=== PATIENT | male | born 1985 | race Caucasian/White ===

== ENCOUNTER 2024-01-27 19:48 | Emergency (ER) | payer MEDICAID, SELFPAY ==
[2024-01-27 19:49] VITALS: BP 171/87; PULSE 88; RESP 18; TEMP 36.6; O2SAT 99; BMI 40.8
[2024-01-27] MEDS: Cephalexin 250 MG Capsule 500 MG PO (21:01)
[2024-01-27 21:03] VITALS: BP 171/87; PULSE 88; RESP 18; TEMP 36.6; O2SAT 99
== END 2024-01-27 21:04 | disposition home or self-care (01) ==
PROVIDERS: Emergency Provider Emergency Medicine; Visit Provider Emergency Medicine
DX: L03.311 Cellulitis of abdominal wall (principal); E11.9 Type 2 diabetes mellitus without complications; F17.200 Nicotine dependence, unspecified, uncomplicated; L02.211 Cutaneous abscess of abdominal wall; I10 Essential (primary) hypertension; Z79.899 Other long term (current) drug therapy; Z79.84 Long term (current) use of oral hypoglycemic drugs
CPT/HCPCS: 99282

== ENCOUNTER 2024-02-01 14:39 | Emergency (ER) | payer MEDICAID, SELFPAY ==
[2024-02-01 14:40] VITALS: BP 170/104; PULSE 86; RESP 18; TEMP 36.4; O2SAT 99; BMI 41.0
[2024-02-01] MEDS: HYDROcodone Bitartrate/Apap 5/325 Tablet PO (15:06)
== END 2024-02-01 16:01 | disposition home or self-care (01) ==
PROVIDERS: Emergency Provider Emergency Medicine; Referring Provider Emergency Medicine; Visit Provider Emergency Medicine
DX: S40.011A Contusion of right shoulder, initial encounter (principal); E11.9 Type 2 diabetes mellitus without complications; I10 Essential (primary) hypertension; F17.200 Nicotine dependence, unspecified, uncomplicated; W10.9XXA Fall (on) (from) unspecified stairs and steps, initial encounter
CPT/HCPCS: 73030; 99282

== ENCOUNTER 2024-04-01 20:28 | Emergency (ER) | payer SELFPAY ==
[2024-04-01 20:28] VITALS: BP 153/97; PULSE 85; RESP 16; TEMP 36.6; O2SAT 97; BMI 40.8
--- NOTE | 2024-04-01 20:40 | EDS_ITS ---
HPI History of Present Illness Chief Complaint: Headache Detail of Chief Complaint: Headache Informant: patient Narrative Narrative: Patient presents emergency department complaint of headache that started 3 days ago. He initially had nausea and vomiting the first day. Today he had 1 episode of diarrhea. Patient has history of migraines and states that they have been worse over the last several months. Patient has been trying over-the- counter remedies without any relief. Patient denies falls or head injuries. He denies fever. He states he took a COVID test yesterday and it was negative. He states that when he had COVID last time he presented with a severe headache. Patient does describe some photophobia. Currently rates headache a 7-1/2 out of 10. [facility] Medical History (Updated 04/01/24 @ 21:[address] Arnulfo Lemon DO) Marijuana smoker Hypertension Diabetes Home Medications ?Medication ?Instructions ?Recorded ?Last Taken ?Type lisinopril 20 mg tablet 20 mg PO DAILY 01/27/24 Unknown History metformin 1,000 mg tablet 1,000 mg PO BID 01/27/24 Unknown History aripiprazole 20 mg tablet 20 mg PO QPM 04/01/24 Unknown History doxepin 25 mg capsule 25 mg PO QHS 04/01/24 Unknown History pantoprazole 40 mg tablet,delayed 40 mg PO DAILY 04/01/24 Unknown History release propranolol 20 mg tablet 20 mg PO TID PRN PRN anxiety 04/01/24 Unknown History viloxazine 200 mg capsule,extended 600 mg PO DAILY 04/01/24 03/28/24 History release 24 hr (Qelbree) Allergy/AdvReac Type Severity Reaction Status Date / Time doxycycline Allergy Mild Other Verified 04/01/24 20:31 Surgical History H/O shoulder surgery Social History Smoking Status: Current every day smoker tobacco type: cigarettes ROS ROS ED Review of Systems ROS Unobtainable: other Constitutional Constitutional ED: Reports lethargy; Denies chills, fever(s), sweats or weight loss Eyes Eyes: Denies blurry vision, change in vision or diplopia ENT ENT ED: Reports other Details: Photophobia ; Denies rhinorrhea or sore throat Cardiovascular Cardiovascular: Denies chest pain, orthopnea or racing heartbeat Respiratory/Chest Respiratory/Chest: Denies cough, dyspnea, dyspnea on exertion, orthopnea or sputum Gastrointestinal Gastrointestinal: Reports nausea and vomiting; Denies abdominal pain or diarrhea Genitourinary Genitourinary ED: Denies dysuria, hematuria or urinary frequency Musculoskeletal Musculoskeletal: Denies arthralgias, back pain, myalgias or neck pain Integumentary Denies abscess, Abrasions or rash Neurologic Neurologic: Reports headache(s); Denies weakness Psychiatric Psychiatric: Denies anxiety, depression or suicidal thoughts Endocrine Endocrinology: Denies polydipsia, polyphagia or polyuria Hematologic/Lymphatic Hematologic/Lymphatic: Denies easy bleeding, easy bruising or lymphadenopathy Allergic/Immunologic Allergic/Immunologic ED: Denies mouth swelling, tongue swelling or urticaria EXAM Physical Exam Const Vital Signs: 04/01/24 20:28 Temperature 98 F Temperature Source Oral Pulse Rate 85 Respiratory Rate 16 Blood Pressure 153/97 H Blood Pressure Mean 115 Pulse Ox 97 Oxygen Delivery Method Room Air Positive well nourished and well developed General Appearance ED: well developed and NAD HEENT Reports TM's clear and moist mucous membranes normocephalic and atraumatic; Negative for trauma or tenderness Tympanic Membrane ED: Yes TM's clear Eyes PERRL and EOMs intact bilaterally General Eye ED: Negative for pale conjunctiva or scleral icterus Neck no lymphadenopathy, supple and no JVD General: Negative for tenderness Chest Wall inspection of chest normal and palpation of chest normal Chest: Negative for tenderness Resp normal respiratory effort and clear to auscultation bilaterally Effort and Inspection: Negative for respiratory distress or pain with movement Auscultation: Negative for rhonchi, wheezes or diminished lung sounds Cardio regular rate, regular rhythm, S1 normal heart sound, S2 normal heart sound and no murmurs Peripheral Pulses: pulses 2+ throughout GI normal to inspection, nondistended, normoactive bowel sounds, soft to palpation, non-tender, non-distended and no masses Back/Spine no CVA tenderness and no thoracic nor lumbar tenderness Extremity normal to inspection General Extremety ED: Negative for edema General Extremity: Negative for edema Neuro oriented x3, CN's II-XII intact bilaterally, no sensory deficits noted and gait normal Neuro Narrative: Finger-nose and heel davison testing within normal limits, negative Romberg, negative pronator drift, fundi benign. Sensorium / Orientation: awake, alert, oriented to person, oriented to place and oriented to time Motor Exam: strength 5/5 throughout and strength abnormal Psych mental status grossly normal Skin no rashes or lesions noted and no wounds MDM MDM MDM Narrative Medical decision making narrative: Patient presents with a headache typical of his prior migraines. IV line will be established. Patient will be given a liter normal same fluid bolus as well as Reglan, Benadryl, Toradol, and Decadron. After treatment he had minimal improvement in his headache. Patient was given morphine 4 mg IV. This did seem to help his headache but did not resolve it. Clinically he looks well. I suspect likely exacerbation of migraine. Also in the differential would be viral etiology. Clinically I do not think he has meningitis. I do not think he needs any imaging of his brain as he has had no falls or head injuries and has been having ongoing headaches for months typical of his migraine. Patient is comfortable going home and will follow-up with primary care physician on-call for no doc within the next 5 to 7 days. Advised to return if worsening headache, vomiting, trouble with balance or speech, or condition should worsen anyway. Patient tells me that he was seen several years ago at [facility] for sim ilar type headache and at that time he had a CT scan of his brain that was unremarkable and this was within the last 2 years. At this point I do not feel he needs any further imaging. Discharged home stable condition. Discharge Plan Triage Chief Complaint: Headache ED Provider: Arnulfo Lemon Dx/Rx/DC Orders Clinical Impression: Headache, Hypertension Instructions: ED Headache Unspecified, ED, Migraine (Classical) Prescriptions: No Action pantoprazole 40 mg tablet,delayed release (DR/EC) 40 mg PO DAILY propranolol 20 mg tablet 20 mg PO TID PRN PRN (Reason: anxiety) Qelbree 200 mg capsule,extended release 24hr 600 mg PO DAILY doxepin 25 mg capsule 25 mg PO QHS aripiprazole 20 mg tablet 20 mg PO QPM lisinopril 20 mg tablet 20 mg PO DAILY metformin 1,000 mg tablet 1,000 mg PO BID Primary Care Provider: Care Physician,No Primary Referrals: Care Physician,No Primary [Primary Care Provider] - Print Language: Mongolian Disposition Disposition: Home, Self Care
[2024-04-01] MEDS: Metoclopramide 10 MG/2 ML Vial IV (20:47)
[2024-04-01] MEDS: Ketorolac 30 MG/ML Syringe IV (20:47)
[2024-04-01] MEDS: 0.9% Normal Saline (1000mL) 1,000 ML 1000 ML IV (20:47)
[2024-04-01] MEDS: DiphenhydrAMINE 50 MG/ML Syringe 25 MG IV (20:47)
[2024-04-01] MEDS: dexAMETHasone 10 MG/ML Vial IV (20:47)
[2024-04-01] MEDS: Morphine 4 MG/ML Syringe IV (21:26)
[2024-04-01 21:59] VITALS: BP 151/87; PULSE 80; RESP 18; TEMP 36.7; O2SAT 97
== END 2024-04-01 21:59 | disposition home or self-care (01) ==
PROVIDERS: Emergency Provider Emergency Medicine; Visit Provider Emergency Medicine
DX: R51.9 Headache, unspecified (principal); E11.9 Type 2 diabetes mellitus without complications; R11.2 Nausea with vomiting, unspecified; F17.210 Nicotine dependence, cigarettes, uncomplicated; I10 Essential (primary) hypertension; Z79.899 Other long term (current) drug therapy
CPT/HCPCS: 96361; 96374; 96375; 99283; A4216

== ENCOUNTER 2024-06-04 08:16 | Emergency (ER) | payer SELFPAY ==
[2024-06-04 08:16] VITALS: BP 177/104; PULSE 61; RESP 15; TEMP 36.7; O2SAT 100; BMI 39.9
--- NOTE | 2024-06-04 08:26 | RAD_ITS ---
PROCEDURE: CLAVICLE REASON FOR EXAM: FALL TECHNIQUE: 2 view(s) of each clavicle COMPARISON: None. FINDINGS: RIGHT CLAVICLE: No evidence of fracture. No suspicious osseous lesion. Acromioclavicular alignment is preserved. Compression plate is noted fixing an old fracture of the proximal humerus. Soft tissues are unremarkable. RAD/Clavicle IMPRESSION: NEGATIVE RIGHT CLAVICLE. Reading Location: [facility]
--- NOTE | 2024-06-04 08:53 | EX.ED.UPPERE ---
HPI History of Present Illness Chief Complaint: Upper Extremity Injury Informant: patient Narrative Narrative: Patient is a 38-year-old male with history of hypertension, diabetes mellitus and prior ORIF of right proximal humerus fracture, [id number], presenting with injury and increased pain of his right shoulder. He follows with orthopedics, Dr. Chen at . He states that yesterday morning he was trying to move and was carrying a TV up some stairs. Box for the TV ripped and he crouch down real quick to try to catch it. This caused him become lightheaded (has ongoing issue with positional lightheadedness) causing him to fall down about 5 stairs. He states his shoulder hit the wall. He did not hit his head or have loss of consciousness. He felt a pop in his shoulder when he hit the wall and since has had severe shoulder pain. States that a year ago he had surgery after a fracture to his humerus and did have some ongoing pain issues. He states that since then he is also had a pinched nerve in his elbow that flares up intermittently. He states that since the new injury he has had decreased range of motion of his shoulder and is worried that he might have reinjured it. He states he called his primary care doctor and Ortho and was told to take ibuprofen and if he felt like the pain was worsening to come to the ER. He states he cannot get into his orthopedist on Tuesday (in 5 days). No other complaints or concerns reported at this time. Patient does note that he ran out of his lisinopril as he lost his refill prescription. He has not had it for about 5 days. [facility] Medical History Marijuana smoker Hypertension Diabetes Home Medications ?Medication ?Instructions ?Recorded ?Last Taken ?Type lisinopril 20 mg tablet 20 mg PO DAILY 01/27/24 Unknown History metformin 1,000 mg tablet 1,000 mg PO BID 01/27/24 Unknown History aripiprazole 20 mg tablet 20 mg PO QPM 04/01/24 Unknown History doxepin 25 mg capsule 25 mg PO QHS 04/01/24 Unknown History pantoprazole 40 mg tablet,delayed 40 mg PO DAILY 04/01/24 Unknown History release propranolol 20 mg tablet 20 mg PO TID PRN PRN anxiety 04/01/24 Unknown History viloxazine 200 mg capsule,extended 600 mg PO DAILY 04/01/24 03/28/24 History release 24 hr (Qelbree) lisinopril 20 mg tablet 20 mg PO DAILY #14 tabs 06/04/24 Unknown Rx oxycodone 5 mg tablet 5 mg PO Q8H PRN pain 3 days #10 06/04/24 Unknown Rx tabs Allergy/AdvReac Type Severity Reaction Status Date / Time doxycycline Allergy Mild Other Verified 06/04/24 08:18 Surgical History H/O shoulder surgery Social History Smoking Status: Current every day smoker tobacco type: cigarettes ROS ROS ED Constitutional Constitutional ED: Denies chills or fever(s) Eyes Eyes: Denies change in vision Musculoskeletal Musculoskeletal: Reports other Details: Right shoulder pain Integumentary Denies Abrasions or rash Neurologic Neurologic: Denies paresthesias or weakness Hematologic/Lymphatic Hematologic/Lymphatic: Denies easy bleeding or easy bruising EXAM Physical Exam Const Vital Signs: 06/04/24 08:16 Temperature 98.1 F Temperature Source Temporal Pulse Rate 61 Respiratory Rate 15 Blood Pressure 177/104 H Blood Pressure Mean 128 Pulse Ox 100 Oxygen Delivery Method Room Air Positive well nourished and well developed General Appearance ED: well developed and NAD HEENT Reports moist mucous membranes Eyes PERRL Neck full ROM and supple Chest Wall inspection of chest normal Resp normal respiratory effort and clear to auscultation bilaterally Cardio regular rate and regular rhythm Cardio Narrative: 2+ radial pulse present Extremity Extremity Narrative: No obvious deformity to the right shoulder. Surgical scar present in the anterior aspect of the shoulder. No deformity or significant tenderness palpation of the right clavicle. Of the right shoulder he has decreased range of motion more pronounced with active versus passive range of motion especially with flexion and abduction. To palpation most pronounced of the anterior aspect of the shoulder and to a lesser extent the lateral aspect. No obvious effusion present. No deformity of the humerus or distal right arm. Normal range of motion of the hand and fingers. Neuro oriented x3, moves all extremities, no focal motor deficits and no sensory deficits noted Sensorium / Orientation: alert Psych mental status grossly normal Skin Lesions: no lesions Rashes: no rashes MDM MDM MDM Narrative Medical decision making narrative: Patient evaluated for acute right shoulder injury after he struck it against a wall. Has prior surgery. Differential includes periprosthetic fracture, shoulder strain, shoulder dislocation, clavicle fracture and rotator cuff injury. Patient's vital signs significant for hypertension however patient has been out of his lisinopril. He is neurovascularly intact. Protocol x-ray of the clavicle and shoulder placed. X-ray reviewed by myself as radiology does not show any acute fracture or dislocation. Patient given oxycodone for pain control and will be given a short prescription. Has been taking ibuprofen and Tylenol with no relief. In addition will be given a short refill of his lisinopril until he can get more from his primary care doctor. Is given a work note for today as well as work restrictions. He has a sling at home that is padded and instructed to wear that. Discharge and follow-up with orthopedics on Tuesday or sooner if possible. Given return precautions. Discharged home in stable condition. Radiography Diagnostic Testing: Clinical Impression(s) from Imaging Studies Clavicle X-Ray 06/04/24 08:26 IMPRESSION: NEGATIVE RIGHT CLAVICLE. Reading Location: [facility] Discharge Plan Triage Chief Complaint: Upper Extremity Injury ED Provider: Aiyana Doss Dx/Rx/DC Orders Clinical Impression: Injury of right shoulder, H/O shoulder surgery, Hypertension Instructions: ED Contusion, Upper Extremity, ED Hypertension, Established Prescriptions: New oxycodone 5 mg tablet 5 mg PO Q8H PRN (Reason: pain) 3 Days Qty: 10 0RF lisinopril 20 mg tablet 20 mg PO DAILY Qty: 14 0RF No Action pantoprazole 40 mg tablet,delayed release (DR/EC) 40 mg PO DAILY propranolol 20 mg tablet 20 mg PO TID PRN PRN (Reason: anxiety) Qelbree 200 mg capsule,extended release 24hr 600 mg PO DAILY doxepin 25 mg capsule 25 mg PO QHS aripiprazole 20 mg tablet 20 mg PO QPM lisinopril 20 mg tablet 20 mg PO DAILY metformin 1,000 mg tablet 1,000 mg PO BID Stand Alone Forms: ED Work / School Excuse Primary Care Provider: Care Physician,No Primary Referrals: Care Physician,No Primary [Primary Care Provider] - Activity Restrictions/Additional Instructions: Please follow-up with your orthopedist. Please continue to also take ibuprofen. Wear your sling. Make sure you do passive range of motion exercises of your shoulder. Your x-ray did not show any acute fracture or abnormalities of the hardware from your prior surgery. Apply ice to the shoulder. Print Language: Lithuanian Disposition Disposition: Home, Self Care
[2024-06-04] MEDS: oxyCODONE 5 MG Tablet PO (09:06)
[2024-06-04] MEDS: Lisinopril 20 MG Tablet PO (09:06)
--- NOTE | 2024-06-04 09:30 | RAD_ITS ---
PROCEDURE: SHOULDER MIN 2 VIEWS ([facility]), 06/04/2024 REASON FOR EXAM: PAIN, INJURY, PRIOR SX TECHNIQUE: AP, lateral, axillary, and scapular Y views of the right shoulder were obtained. COMPARISON: 02/01/2024 FINDINGS: Fracture/dislocation: Redemonstrated ORIF proximal right humerus with similar posttraumatic deformity. Joint space(s): Mild loss of glenohumeral joint space. Soft tissues: Unremarkable. Foreign bodies: None visible. Bone mineralization: Unremarkable. Other: Trace thoracic dextroscoliosis could be positional. RAD/Shoulder min 2 Views IMPRESSION: 1. Redemonstrated ORIF proximal right humerus with similar posttraumatic deform ity. 2. Mild glenohumeral degenerative changes. 3. Additional description as above. Reading Location: [id number]
[2024-06-04 10:08] VITALS: BP 177/104; PULSE 61; RESP 15; TEMP 36.7; O2SAT 100
== END 2024-06-04 10:10 | disposition home or self-care (01) ==
PROVIDERS: Emergency Provider Emergency Medicine; Visit Provider Emergency Medicine
DX: S49.91XA Unspecified injury of right shoulder and upper arm, initial encounter (principal); E11.9 Type 2 diabetes mellitus without complications; I10 Essential (primary) hypertension; Z98.890 Other specified postprocedural states; Z79.899 Other long term (current) drug therapy; F17.210 Nicotine dependence, cigarettes, uncomplicated; W10.9XXA Fall (on) (from) unspecified stairs and steps, initial encounter; W22.09XA Striking against other stationary object, initial encounter
CPT/HCPCS: 73000; 73030; 99282